=== PATIENT | female | born 1975 | race Caucasian/White ===

== ENCOUNTER 2017-01-24 18:29 | Emergency (ER) | payer MEDICAID ==
[~2017-01-24] VITALS: Ht 157.5 cm; Wt 80.5 kg
[~2017-01-24 18:29] MED LIST: ACET325T33 PO; IBUP-1542 PO; OSLT75C PO; UDROBDM PO
[2017-01-24 19:06] VITALS: Ht 157.5 cm; Wt 80.5 kg
[2017-01-24] MEDS ORDERED: KETOROLAC 60 MG INJ IM STA (21:04)
[2017-01-24] MEDS ORDERED: NAPR-688 PO (21:04)
[2017-01-24] MEDS ORDERED: CYCL-319 PO (21:04)
--- NOTE | 2017-01-24 21:17 | ERD ---
ER Documentation Chief Complaint Date/Time DATE: 01/24/17 TIME: 21:15 Chief Complaint NECK AND SHOULDER PAIN X 1 WEEK, HEADACHE. HPI 41-year-old female presents to the emergency department complaining of bilateral neck and shoulder pain for the past week. Patient states the pain is moderate in severity increased with turning her head to the right and left. Patient states that she tried ibuprofen without any relief. Denies any trauma, fevers ROS All systems reviewed and are negative except as per history of present illness. Medications Home Meds Active Scripts Cyclobenzaprine Hcl* (Cyclobenzaprine Hcl*) 10 Mg Tablet, 10 MG PO Q8 Y for MUSCLE SPASMS, #30 TAB Prov:IFEANYI CAROLINA PA-C 01/24/17 Naproxen* (Naproxen*) 500 Mg Tablet, 500 MG PO BID Y for PAIN, #30 TAB Prov:IFEANYI CAROLINA PA-C 01/24/17 Guaifenesin-Dextromethorphan* (Robitussin* DM) 100MG/10MG/5ML Syrup, 5 ML PO Q6H Y for COUGH, #120 ML Prov:SAMIR SPENCE DO 08/08/15 Acetaminophen* (Tylenol*) 325 Mg Tablet, 3 TAB PO Q8 Y for PAIN AND OR ELEVATED TEMP, #30 TAB Prov:SAMIR SPENCE DO 08/08/15 Ibuprofen* (Motrin*) 600 Mg Tab, 600 MG PO Q8, #20 TAB Prov:SAMIR SPENCE DO 08/08/15 Oseltamivir Phosphate* (Tamiflu*) 75 Mg Capsule, 75 MG PO BID for 5 Days, CAP Prov:SAMIR SPENCE DO 08/08/15 Reported Medications [None] No Conflict Check 11/25/09 Allergies Allergies: Coded Allergies: No Known Allergies (Verified Allergy, Mild, 07/26/14) PMhx/Soc History of Surgery: No Anesthesia Reaction: No Hx Neurological Disorder: No Hx Respiratory Disorders: No Hx Cardiac Disorders: No Hx Psychiatric Problems: No Hx Miscellaneous Medical Probl: No (NO OTHER MEDICAL PROBLEMS) Hx Alcohol Use: No Hx Substance Use: No Hx Tobacco Use: No Physical Exam Vitals Vital Signs Date Time Temp Pulse Resp B/P Pulse Ox O2 Delivery O2 Flow Rate FiO2 01/24/17 19:06 98.5 76 17 136/74 100 Physical Exam Const: Well-developed well-nourished no acute distress Head: Atraumatic Eyes: Normal Conjunctiva ENT: Normal External Ears, Nose and Mouth. Neck: Full range of motion..~ No meningismus. Patient has pain with range of motion. She is tender to palpation of paraspinal muscles Resp: Clear to auscultation bilaterally Cardio: Regular rate and rhythm, no murmurs Abd: Soft, non tender, non distended. Normal bowel sounds Skin: No petechiae or rashes Back: No midline or flank tenderness Ext: No cyanosis, or edema Neur: Awake and alert Psych: Normal Mood and Affect Results 24 hrs Current Medications Medications (Trade) Dose Ordered Sig/Jerome Route PRN Reason Start Time Stop Time Status Last Admin Dose Admin Ketorolac Tromethamine (Toradol) 60 mg ONCE STAT IM 01/24/17 21:04 01/24/17 21:05 DC Procedures/MDM This is a 41-year-old female presenting to the emergency department complaining of neck pain, likely strain versus disc herniation that will need to be followed up as an outpatient. Low suspicion for fracture or dislocation. In the ED patient was given Toradol. Patient is neurovascular intact and hemodynamically stable to be discharged home with close follow-up and return precautions. Prescription for naproxen and Flexeril provided. She understands and agrees this plan Departure Diagnosis: Primary Impression: Neck pain Condition: Stable Patient Instructions: Neck Pain, No Trauma Referrals: NO PRIMARY,CARE PHYSICIAN (PCP) Additional Instructions: Visite a garcia paris muñoz para un EXAMEN.Regrese a estas instalaciones si no se mejora ezequiel esperbamos o ezequiel le dijimos. Regrese a estas instalaciones si no se mejora ezequiel esperbamos o ezequiel le dijimos. [place]negard toda la medicina jael y ezequiel se le indic. IFEANYI CAROLINA PA-C Jan 24, 2017 21:17
[2017-01-24 22:05] VITALS: BP 131/66; PULSE 78; RESP 20
== END 2017-01-24 22:06 | disposition home or self-care (01) ==
LOC: FTE 18:29
DX: M54.2 Cervicalgia (principal)
CPT/HCPCS: 96372; J1885; Z7502

== ENCOUNTER 2017-10-10 00:47 | Emergency (ER) | END 2017-10-10 03:29 | disposition home or self-care (01) ==

== ENCOUNTER 2018-07-05 08:59 | Emergency (ER) | payer MEDICAID ==
[~2018-07-05] VITALS: Wt 80.3 kg
[~2018-07-05 08:59] MED LIST changes: +CYCL10TA7 PO; +GUAI5SYR2 PO; +NAPR-688 PO; +OSEL75CA23 PO; -OSLT75C PO; -UDROBDM PO
[2018-07-05 09:01] VITALS: BP 135/76; PULSE 68; RESP 18
[2018-07-05] MEDS ORDERED: NAPR-985 PO (10:31)
--- NOTE | 2018-07-05 14:24 | ERD ---
ER Documentation Chief Complaint Chief Complaint LEFT LEG PAIN HPI 43 year-old [female] coming in today with Chief Complaint: left ankle injury History of Present Illness: Patient reports mechanical trip and fall 2 days ago in which she "twisted my ankle". Patient unable to bear full weight. Patient denies any other associated symptoms. She reports at home use of Excedrin with some relief of pain. Review of systems: All systems were reviewed and are negative except for what is indicated in the history of present illness. Past Medical History: Anxiety Social History: [Patient denies tobacco, alcohol, elicit drug use] Medications: She reporting unknown medication for anxiety. Allergies: NKDA Social Concerns: Denies ROS All systems reviewed and are negative except as per history of present illness. Medications Home Meds Active Scripts Naproxen* (Naprosyn*) 500 Mg Tablet, 500 MG PO BID PRN for PAIN AND/OR INFLAMMATION for 7 Days, #30 TAB Prov:CARLY ARTHUR NP 07/05/18 Ibuprofen* (Motrin*) 600 Mg Tab, 600 MG PO Q6, #30 TAB Prov:TEJINDER SANCHEZ 10/10/17 Cyclobenzaprine Hcl* (Cyclobenzaprine Hcl*) 10 Mg Tablet, 10 MG PO Q8 PRN for MUSCLE SPASMS, #30 TAB Prov:IFEANYI CAROLINA PA-C 01/24/17 Naproxen* (Naproxen*) 500 Mg Tablet, 500 MG PO BID PRN for PAIN, #30 TAB Prov:IFEANYI CAROLINA PA-C 01/24/17 Guaifenesin-Dextromethorphan* (Robitussin* DM) 100MG/10MG/5ML Syrup, 5 ML PO Q6H PRN for COUGH, #120 ML Prov:SAMIR SPENCE DO 08/08/15 Acetaminophen* (Tylenol*) 325 Mg Tablet, 3 TAB PO Q8 PRN for PAIN AND OR ELEVATED TEMP, #30 TAB Prov:SAMIR SPENCE DO 08/08/15 Ibuprofen* (Motrin*) 600 Mg Tab, 600 MG PO Q8, #20 TAB Prov:SAMIR SPENCE DO 08/08/15 Oseltamivir Phosphate* (Tamiflu*) 75 Mg Capsule, 75 MG PO BID for 5 Days, CAP Prov:SAMIR SPENCE DO 08/08/15 Reported Medications [None] No Conflict Check 11/25/09 Allergies Allergies: Coded Allergies: No Known Allergies (Verified Allergy, Mild, 07/26/14) PMhx/Soc Medical and Surgical Hx: pt denies Medical Hx, pt denies Surgical Hx History of Surgery: No Anesthesia Reaction: No Hx Neurological Disorder: No Hx Respiratory Disorders: No Hx Cardiac Disorders: No Hx Psychiatric Problems: No Hx Miscellaneous Medical Probl: No (NO OTHER MEDICAL PROBLEMS) Hx Alcohol Use: No Hx Substance Use: No Hx Tobacco Use: No Smoking Status: Never smoker FmHx Family History: No diabetes, No coronary disease Physical Exam Vitals Vital Signs Date Temp Pulse Resp B/P (MAP) Pulse Ox O2 O2 Flow FiO2 Time Delivery Rate 07/05/18 98.1 68 18 135/76 99 09:01 (95) Physical Exam Const: No acute distress Head: Atraumatic Eyes: Normal Conjunctiva ENT: Normal External Ears, Nose and Mouth. Neck: Full range of motion. No meningismus. Resp: Clear to auscultation bilaterally Cardio: Regular rate and rhythm, no murmurs Abd: Soft, non tender, non distended. Normal bowel sounds Skin: No petechiae or rashes Back: No midline or flank tenderness Ext: No cyanosis; swelling, edema, ecchymosis, no deformity noted to left lateral malleolus Neur: Awake and alert Psych: Normal Mood and Affect Procedures/MDM ED course includes a thorough examination and history. Patient with complaint of left ankle pain post fall. ED course includes: xray left ankle (IMPRESSION: 1. No acute fracture or dislocation.) REASSESSMENT @ 10:30: Updated patient on radiology findings. Updated on plan of care for Tyson wrap and crutches. Educated on follow-up care and pain continues with PCP or orthopedic. Otherwise healthy patient presenting with constellation of symptoms likely representing uncomplicated ankle sprain as characterized by history and physical exam findings and radiology tests. No respiratory distress, otherwise relatively well appearing and nontoxic. Patient educated on diagnoses, prescriptions, follow-up care, return precautions. Strict return precautions given for worsening condition; questions answered discharge. Disposition for discharge with followup in 3 days with PCP if pain continues. Departure Diagnosis: Primary Impression: Sprain of ankle, left Encounter type: initial encounter Involved ligament of ankle: unspecified ligament Qualified Codes: S93.402A - Sprain of unspecified ligament of left ankle, initial encounter Condition: Stable Patient Instructions: Treating Ankle Sprains, Self-Care for Strains and Sprains Additional Instructions: Call your primary care doctor TODAY for an appointment Tuesday, get in appointment so you can followup your pain doesn't improve by Tuesday. If no pain after a few days, then followup with clinic as needed. See the doctor sooner or return here if your condition worsens before your appointment time. RICE for next week. Rest. Ice. Compression with TYSON wrap. Elevation with pillows at home. Take prescription for next week to help with inflammation/swelling. CARLY ARTHUR NP Jul 05, 2018 14:23
== END 2018-07-05 10:44 | disposition home or self-care (01) ==
LOC: FTE 08:59
DX: S93.402A Sprain of unspecified ligament of left ankle, initial encounter (principal); W01.0XXA Fall on same level from slipping, tripping and stumbling without subsequent striking against object, initial encounter; Y92.9 Unspecified place or not applicable
CPT/HCPCS: 73610; Z7502